=== PATIENT | female | born 1935 | race Asian ===

== ENCOUNTER 2018-09-23 22:47 | Emergency (ER) | payer MEDICARE ==
[~2018-09-23] VITALS: Ht 157.5 cm; Wt 43.1 kg
[2018-09-23 22:55] VITALS: BP_SYST 153
[2018-09-23] MEDS ORDERED: ONDANSETRON HCL 4 MG/2 ML VIAL IVP ONE (23:15)
[2018-09-23 23:44] LABS: HEMATOCRIT 33.4 % (36-48); HEMOGLOBIN 11.3 g/dL (12.0-16.0); LYMPHOCYTES % (AUTO) 7.1 % (20.5-51.5); MEAN CORPUSCULAR HEMOGLOBIN 32 pg (27-31); MEAN CORPUSCULAR HGB CONC 34 % (32-36); MEAN CORPUSCULAR VOLUME 93 fL (79.0-98.0); NEUTROPHILS % (AUTO) 87.1 % (40.0-70.0); PLATELET COUNT (AUTO) 204 K/uL (130-430); RED BLOOD CELL COUNT(AUTO) 3.57 MIL/uL (4.2-6.2); RED CELL DISTRIBUTION WIDTH 13.3 % (9.0-15.0); WHITE BLOOD COUNT (AUTO) 12.3 K/uL (4.8-10.8)
[2018-09-23 23:45] LABS: BASOPHILS % (AUTO) 0.2 % (0.0-2.0); LYMPHOCYTES # (AUTO) 0.9 K/uL (1.0-5.5); MONOCYTES # (AUTO) 0.7 K/uL (0.0-1.0); MONOCYTES % (AUTO) 5.6 % (1.7-9.3); NEUTROPHILS # (AUTO) 10.7 K/uL (1.8-7.7)
[2018-09-23] MEDS ORDERED: MANNITOL 25% 12.5GM/50 ML VIAL IVP ONE (23:45)
[2018-09-23 23:56] LABS: ANION GAP 11 (5-15); CALCIUM 8.2 mg/dL (8.4-11.0); CHLORIDE 94 mmol/L (98-107); CREATININE 0.62 mg/dL (0.55-1.30); GLUCOSE 154 mg/dL (70-99); POTASSIUM 3.8 mmol/L (3.5-5.1); SODIUM SERUM 129 mmol/L (136-145); UREA NITROGEN, BLOOD 14 mg/dL (8-21)
[2018-09-23 23:59] LABS: INR 3.1 (0.8-1.2)
[2018-09-24] MEDS ORDERED: HUMAN PROTHROMBIN COMPLX(PCC) 500 UNITS KIT IV ONE
[2018-09-24 00:06] LABS: ALANINE AMINOTRANSFERASE 19 U/L (12-78); ALBUMIN 3.4 g/dL (3.4-4.8); ASPARTATE AMINOTRANSFERASE 30 U/L (10-37); TOTAL BILIRUBIN 1.7 mg/dL (0.0-1.0)
[2018-09-24 00:12] VITALS: BP_SYST 148
== END 2018-09-24 00:12 | disposition short-term general hospital (02) ==
LOC: EDBD 22:47 → SED 22:47
DX: S06.300A Unspecified focal traumatic brain injury without loss of consciousness, initial encounter (principal); I48.91 Unspecified atrial fibrillation; I10 Essential (primary) hypertension; E78.00 Pure hypercholesterolemia, unspecified; Z86.79 Personal history of other diseases of the circulatory system; W19.XXXA Unspecified fall, initial encounter; Y93.89 Activity, other specified; Y92.89 Other specified places as the place of occurrence of the external cause; Y99.8 Other external cause status
CPT/HCPCS: 36415; 70450; 80053; 82962; 83605; 83880; 84484; 85025; 85379; 85610; 85730; 87040; 96374; 96375; 99291; J2150; J2405